=== PATIENT | male | born 1960 | race Caucasian/White ===

== ENCOUNTER 2022-10-19 08:06 | Day surgery (SDC) | payer SELFPAY ==
[2022-10-19] VITALS (8 sets, daily range): BP systolic 92–158; BP diastolic 47–83; PULSE 53–67; RESP 16–17; TEMP 36.5–36.6; O2SAT 96–99; BMI 30.2
[2022-10-19] MEDS: Lactated Ringers 1,000 ML 15 ML IV (08:38)
--- NOTE | 2022-10-19 08:44 | HP.PCM_ITS ---
HPI - General HPI Narrative TARCI AGUIRRE, is a 62 M who presents for colonoscopy. The patient had his colonoscopy 6 years ago which was normal but he recently had a positive Cologuard. He denies any gross blood in the stool. He denies abdominal pain. No family history of colon cancer. [facility] Medical History (Updated 10/16/22 @ 11:50 by Breana Chavez) Alcohol use Arthritis Back pain Cardiology follow-up encounter Gastric reflux History of echocardiogram History of stress test HTN (hypertension) Hyperlipidemia Migraine headache Non-smoker Wears glasses Home Medications atorvastatin 40 mg tablet 40 mg PO DAILY 09/11/22 [History Last Taken Unknown] clopidogrel 75 mg tablet 75 mg PO DAILY 09/11/22 [History Last Taken 10/14/22] metoprolol tartrate 50 mg tablet 50 mg PO BID 09/11/22 [History Last Taken 10/19/22] Allergy/AdvReac Type Severity Reaction Status Date / Time No Known Allergies Allergy Verified 10/19/22 08:26 Surgical History (Updated 10/16/22 @ 11:50 by Breana Chavez) History of cardiac catheterization History of colonoscopy Stented coronary artery Social History (Updated 09/11/22 @ 16:05 by Alice Gutierrez) household members: spouse current occupational status: employed current occupation: SELF Smoking Status: Never smoker nidia/islam: [place] Past Medical/Surgical History Planned Operation Planned Operative Procedure/s: CSCOPE OA Previous Hospitalizations/Surgeries HX Hospitalizations: No Any Problems With Anesthesia: No You/Your Family Experience Fever (Hyperthermia) With Anes: No Cholinesterase deficiency: No Cardiovascular Hx Hypertension: Yes (CONTROLLED WITH MED) Respiratory Hx Sleep Apnea: No Hx Respiratory Tract Infection/Cold (presently): No Do You Snore Loudly (louder than talking or can be heard): Yes Do You Often Feel Tired/ Fatigued/ Sleepy Dring Daytime?: No Has Anyone Observed You Stop Breathing During Sleep?: No Result (for STOP score): Positive Smoking Status: Never smoker Neurological Does patient have nerve stimulator: No Reproduction : No Miscellaneous Recent Exposure to Contagious Disease: No Allergies No Known Allergies Allergy (Verified 10/19/22 08:26) Discharge Is Pt Admitted From a Retirement, or a [facility]: No After D/C, Where Do you Plan to Go: Return Home Vital Signs Vital Signs Vital Signs: 10/19/22 08:27 10/19/22 08:27 Temperature 97.7 F L Temperature Source Temporal Pulse Rate 60 Respiratory Rate 17 Respiratory Pattern Normal Blood Pressure 158/83 H Blood Pressure Mean 108 Blood Pressure Source Monitor Blood Pressure Position Semi-Fowlers Blood Pressure Location Left Arm Pulse Ox 99 Oxygen Delivery Method Room Air Weight Weight: 205 lb 0.478 oz Body Mass Index (BMI) 30.2 Physical Exam Const alert and oriented x3 HEENT normocephalic Eyes PERRL Resp normal respiratory effort and normal air movement Cardio regular rate and regular rhythm GI soft to palpation, non-tender and non-distended Extremity normal to inspection Assessment & Plan Assessment/Plan (1) Positive colorectal cancer screening using Cologuard test: PLAN: Patient had positive Cologuard. His last normal colonoscopy was 6 years ago. Plan for colonoscopy today. I explained endoscopy in detail to the patient. I explained the risks including but not limited to stroke or heart attack with anesthesia, perforation of the GI tract, bleeding, infection. I explained that any of these could necessitate further emergency surgery. The patient understands and all questions were answered sufficiently. The patient wishes to proceed with procedure. Jose Luis Lenz MD Pager: [facility] [address] [place] [address], [address] [place] [address] Office: Surgery Risks - Colonoscopy Risks Include but are not Limited To: Risks include but are not limited to: Bleeding, perforation requiring further surgery, inability to complete colonoscopy requiring barium enema.
--- NOTE | 2022-10-19 09:15 | COLBX_PTH ---
PATIENT: TRACI AGUIRRE LOC: EN U#:[id number] AGE/SX: 62/M ROOM: RE10/19/[address]: Dr. Jose Luis Lenz MD : 1960 BED: DIS: 10/19/2022 SPEC #: [id number] RECD: 10/19/22 10:09 STATUS: SHIRA RESteve #: [id number] LILLI: 10/19/22 09:[address]: Jose Luis Lenz DEPT: SURGICAL PATHOLOGY RECD BY: Yisel Shin ENTERED: 10/19/22 10:39 SP TYPE: COLON BX OTHR DR: Dr. Mark Irizarry MD Tissues: Transverse colon Procedures: Surgery Specimen Level IV HEADER OPERATION: Colonoscopy ? open access (MAC) PRE-OP DIAGNOSIS: Positive Cologuard screening test TISSUE SUBMITTED: Transverse colon polyp MICROSCOPIC DIAGNOSIS Transverse colon polyp, biopsy: Hyperplastic polyp. SJ:que 10/22/2022 MICROSCOPIC DESCRIPTION Slides are reviewed. GROSS DESCRIPTION Received in fixative is one container labeled with the patient's name and designated transverse colon polyp. The specimen consists of one irregular fragment of light dennison soft tissue that measures 0.3 x 0.2 x 0.1 cm. Multiple fragments of fecal material are also noted. The specimen is totally submitted in one cassette. / SJ:que 10/19/2022 TC:1 CPT: 46723
--- NOTE | 2022-10-19 09:21 | OP.COLON_ITS ---
Patient Name: Bob Pratt Procedure Date: 10/19/2022 8:47 AM Date of : 1960 Age: 62 Procedure: Colonoscopy Indications: Positive Cologuard test Providers: Jose Luis Lenz MD Medicines: Monitored Anesthesia Care Patient Profile: This is a 62 year old male. Refer to note in patient chart for documentation of history and physical. Last Colonoscopy: several years ago. Complications: No immediate complications. Procedure: Pre-Anesthesia Assessment: - Prior to the procedure, a History and Physical was performed, and patient medications and allergies were reviewed. The patient's tolerance of previous anesthesia was also reviewed. The risks and benefits of the procedure and the sedation options and risks were discussed with the patient. All questions were answered, and informed consent was obtained. Prior Anticoagulants: The patient has taken Plavix (clopidogrel), last dose was 5 days prior to procedure. After reviewing the risks and benefits, the patient was deemed in satisfactory condition to undergo the procedure. After I obtained informed consent, the scope was passed under direct vision. Throughout the procedure, the patient's blood pressure, pulse, and oxygen saturations were monitored continuously. The colonoscope was introduced through the anus and advanced to the cecum, identified by appendiceal orifice and ileocecal valve. The colonoscopy was performed without difficulty. The patient tolerated the procedure well. The quality of the bowel preparation was good. Scope In: 8:56:24 AM Scope Withdrawal Time 0 hours 7 minutes 32 seconds Scope Out: 9:18:00 AM Total Procedure Duration Time 0 hours 21 minutes 36 seconds Findings: A small polyp was found in the transverse colon. The polyp was removed with a hot snare. Resection and retrieval were complete. The exam was otherwise without abnormality on direct and retroflexion views. Impression: - One small polyp in the transverse colon, removed with a hot snare. Resected and retrieved. - The examination was otherwise normal on direct and retroflexion views. Recommendation: - Discharge patient to home. - Resume previous diet. - Continue present medications. - Resume Plavix (clopidogrel) at prior dose tomorrow. - Await pathology results. - Repeat colonoscopy in 5 years for surveillance based on pathology results. Procedure Code(s): --- Professional --- 17353, Colonoscopy, flexible; with removal of tumor(s), polyp(s), or other lesion(s) by snare technique Diagnosis Code(s): --- Professional --- D12.3, Benign neoplasm of transverse colon (hepatic flexure or splenic flexure) R19.5, Other fecal abnormalities CPT copyright 2017 [employer]. All rights reserved. The codes documented in this report are preliminary and upon aircraft engine specialist review may be revised to meet current compliance requirements. Jose Luis Lenz MD 10/19/2022 9:21:41 AM This report has been signed electronically. Number of Addenda: 0 Note Initiated On: 10/19/2022 8:47 AM
--- NOTE | 2022-10-19 09:22 | OP.CCLET_ITS ---
10/19/2022 Mrak Irizarry Md Re : Colonoscopy procedure for Bob Pratt Dear Juan C This procedure was performed on Wednesday, October 19, 2022. My impressions and recommendations are as follows: Impressions : - One small polyp in the transverse colon, removed with a hot snare. Resected and retrieved. - The examination was otherwise normal on direct and retroflexion views. Recommendations : - Discharge patient to home. - Resume previous diet. - Continue present medications. - Resume Plavix (clopidogrel) at prior dose tomorrow. - Await pathology results. - Repeat colonoscopy in 5 years for surveillance based on pathology results. My findings are described in the full procedure note, which is enclosed. If I can be of further assistance, please feel free to contact me at Doctor phone number(s): , Work: . Sincerely, Jose Luis Lenz MD 10/19/2022 9:21:41 AM This report has been signed electronically.
== END 2022-10-19 10:35 | disposition home or self-care (01) ==
LOC: EN 08:13 → AC 08:16
PROVIDERS: PCP Family Medicine; Referring Provider Family Medicine; Visit Provider Surgery
PROC: 0DJD8ZZ Inspection of Lower Intestinal Tract, Via Natural or Artificial Opening Endoscopic (ICD-10-PCS; CPT 45378; principal; 2022-10-19 09:10)
DX: K63.5 Polyp of colon (principal); E78.5 Hyperlipidemia, unspecified; I10 Essential (primary) hypertension; Z79.899 Other long term (current) drug therapy; Z79.02 Long term (current) use of antithrombotics/antiplatelets; K21.9 Gastro-esophageal reflux disease without esophagitis
CPT/HCPCS: 45385; 88305; J7120; J2405